=== PATIENT | male | born 1980 | race Caucasian/White ===

== ENCOUNTER → 2017-12-18 | Outpatient (CLI) | payer OTHER ==
--- NOTE | 2017-12-19 09:06 | ECHO ---
[email or web address] [address] [address] Main: [phone] Fax: Transthoracic Echocardiogram Name: SARAHI CADET MR#: [id number] Study Date: 12/18/2017 Study Time: 02:12 PM Date of : 1980 Age: 37 year(s) Height: 182.9 cm (72 in.) Weight: 95.26 kg (210 lb.) BSA: 2.18 m2 Gender: Male Examination: Echo Indication: Murmur/3 year old son with bicuspid AV Image Quality: Excellent Contrast: Requested by: Denys Helm BP: / Heart Rate: Rhythm: Indication: Murmur/4 year old son with bicuspid AV Procedure Staff Hot Box Checker: Charlette Pickens RD Reading Physician: Quincy Franz MD Requesting Provider: Conclusions: Normal size left ventricle. No LV hypertrophy. Normal global systolic LV function. EF is 70 %. The left atrium is normal in size. Trivial mitral valve regurgitation. The aortic valve is normal in appearance and function. Trivial tricuspid valve regurgitation. No pericardial effusion. Measurements: Chambers Valvular Assessment AV/MV Valvular Assessment TV/PV Normal Normal Normal Name Value Range Name Value Range Name Value Range Ao Sherry (MM): 3.6 cm (2.2 cm-3.7 AV Vmax: 1.39 m/s (1 m/s-1.7 TR Vmax: 2.32 mm/s ( - ) cm) m/s) TR PGmax: 22 mmHg ( - ) IVSd (2D): 1.0 cm (0.6 cm-1.1 AV meanP mmHg ( - ) syst. PAP: 27 mmHg ( - ) cm) MV E Vmax: 0.71 m/s ( - ) LVDd (2D): 4.9 cm (4.2 cm-5.9 MV A Vmax: 0.51 m/s ( - ) cm) MV E/A: 1.39 ( - ) LVDs (2D): 2.6 cm (2.1 cm-4 cm) LVPWd (2D): 1.1 cm (0.6 cm-1 cm) LVEF (MOD4): 70 % (>=55 %) Continued Measurements: Chambers Valvular Assessment AV/MV Valvular Assessment TV/PV Name Value Name Value Name Value Patient: SARAHI CADET Study Date: 12/18/2017 Page 1 of 2 02:12 PM LADs: 3.4 cm MV E' Septal: 0.10 m/s CVP (est.): 5 mmHg LADs Lon.0 cm MV E/E' Septal: 7.30 LA Area: 16.2 cm2 MV E/E' Lateral: 4.90 Additional Vessels Name Value Ao Ascendin.1 cm Findings: Left Ventricle: Normal size left ventricle. No LV hypertrophy. Normal global systolic LV function. EF is 70 %. No regional wall motion abnormality. Normal diastolic LV function. Right Ventricle: Normal size right ventricle. Left Atrium: The left atrium is normal in size. Right Atrium: The right atrium is normal in size. Mitral Valve: The mitral valve is normal in appearance and function. Trivial mitral valve regurgitation. Aortic Valve: The aortic valve is normal in appearance and function. The aortic valve is tri-leaflet. Tricuspid Valve: The tricuspid valve is normal in appearance and function. Trivial tricuspid valve regurgitation. Pulmonic Valve: Pulmonary valve not well visualized. Aorta: The aorta is normal. Pericardium: No pericardial effusion. (No Signature Object) Patient: SARAHI CADET Study Date: 12/18/2017 Page 2 of 2 02:12 PM [id number]
== END ==
LOC: FCP 13:58
PROVIDERS: ATTEND Internal Medicine Cardiovascular Disease
DX: R94.31 Abnormal electrocardiogram [ECG] [EKG] (principal); R06.02 Shortness of breath; R01.1 Cardiac murmur, unspecified